=== PATIENT | female | born 1985 | race Caucasian/White ===

== ENCOUNTER 2018-05-05 12:00 | Outpatient (CLI) | payer BC, OTHER ==
[~2018-05-05] VITALS: Ht 167.6 cm; Wt 118.6 kg
[~2018-05-05 12:00] MED LIST: CEPH-368 PO; FAMO-79 PO; IBUP-1222 PO; LORA-445 PO; ONDA4TAB7 PO; PREN1TAB60 PO
[2018-05-05 12:40] VITALS: BP 122/87
[2018-05-05 13:10] LABS: MICROSCOPIC AUTO
[2018-05-05] MEDS ORDERED: NITR100C56 PO (17:10)
== END 2018-05-05 17:41 | disposition home or self-care (01) ==
LOC: LDOP 12:00
PROVIDERS: ATTEND Obstetrics & Gynecology
DX: O26.893 Other specified pregnancy related conditions, third trimester (principal); R10.9 Unspecified abdominal pain; Z3A.38 38 weeks gestation of pregnancy
CPT/HCPCS: 59025; 76815; 81001; 87086; 89060; 99211; G0463; Q0114

== ENCOUNTER 2018-05-14 20:16 | Inpatient (IN) | payer BC, OTHER ==
[~2018-05-14] VITALS: Ht 167.6 cm; Wt 118.0 kg
[~2018-05-14 20:16] MED LIST changes: +NITR100C56 PO
[2018-05-14] MEDS ORDERED: LACTATED RINGERS 1,000 ML IV SCH ×2 (20:41→21:22)
[2018-05-14] MEDS ORDERED: OXYTOCIN 30U/ 0.9% NaCL 500ML 500 ML IV PRN (20:41)
[2018-05-14] MEDS ORDERED: D5%-LACTATED RINGERS 1,000 ML IV SCH (20:41)
[2018-05-14] MEDS ORDERED: OXYTOCIN 30U/ 0.9% NaCL 500ML 500 ML IV ONE (20:41)
[2018-05-14] MEDS ORDERED: NEWBORN KIT ONE (20:44)
[2018-05-14] MEDS ORDERED: LIDOCAINE 1%, 20ML ONE (20:44)
[2018-05-14] MEDS ORDERED: MISOPROSTOL 200 MCG TABLET ONE (20:44)
[2018-05-14] MEDS ORDERED: OXYTOCIN 30U/ 0.9% NaCL 500ML 500 ML ONE (20:45)
[2018-05-14] MEDS ORDERED: SODIUM CITRATE/CITRIC ACID 30 ML UDC PO PRN (21:00)
[2018-05-14] MEDS ORDERED: PENICILLIN GK 5,000,000 UNITS in DEXTROSE 5% 100 ML IVPB ONE (21:00)
[2018-05-14] MEDS ORDERED: ONDANSETRON 2MG/ML, 2ML IVPush PRN (21:00)
[2018-05-14] MEDS ORDERED: FENTANYL PF 100 MCG/2ML IVPush PRN (21:00)
[2018-05-14] MEDS ORDERED: FENTANYL PF 100 MCG/2ML IV PRN (21:00)
[2018-05-14 21:04] LABS: BASOPHILS # (AUTO) 0.03 x10^3/uL (0-0.1); BASOPHILS % (AUTO) 0 % (0-1); EOSINOPHILS # (AUTO) 0.07 x10^3/uL (0-0.4); EOSINOPHILS % (AUTO) 1 % (1-7); LYMPHOCYTES # (AUTO) 1.82 x10^3/uL (1-3.4); LYMPHOCYTES % (AUTO) 23 % (22-44); MD NO; MEAN CORPUSCULAR HEMOGLOBIN 29.1 pg (27.0-34.8); MEAN CORPUSCULAR HGB CONC 32.7 g/dL (32.4-35.8); MEAN CORPUSCULAR VOLUME 89.1 fL (80-100); MEAN PLATELET VOLUME 8.5 fL (7.4-10.4); MONOCYTES # (AUTO) 0.45 x10^3/uL (0.2-0.8); MONOCYTES % (AUTO) 6 % (2-9); NEUTROPHILS # (AUTO) 5.71 x10^3/uL (1.8-6.8); NEUTROPHILS % (AUTO) 71 % (42-75); PLATELET COUNT 217 x10^3/uL (130-400); RED BLOOD COUNT 4.32 x10^6/uL (3.82-5.3); RED CELL DISTRIBUTION WIDTH 14.4 % (9.6-15.2)
[2018-05-14 21:08] VITALS: BP 126/83
[2018-05-14] MEDS ORDERED: FENTANYL/BUPIV./NS/PF 250 ML EPIDCONT SCH (21:22)
[2018-05-14] MEDS ORDERED: EPHEDRINE 50 MG/ML, 1ML IVPush PRN (21:30)
[2018-05-14] MEDS ORDERED: FENTANYL PF 500 MCG, BUPIVACAINE/PF 0.5%, 30ML 62.5 ML in SODIUM CHLORIDE 0.9% 177.5 ML EPIDCONT SCH (21:30)
[2018-05-14] MEDS ORDERED: LACTATED RINGERS 1,000 ML IVBOLUS PRN (21:30)
[2018-05-14] MEDS ORDERED: BUPIVACAINE 0.25% ONE (21:57)
[2018-05-15] MEDS ORDERED: PENICILLIN GK 2,500,000 UNITS in DEXTROSE 5% 100 ML IVPB SCH (01:00)
[2018-05-15] MEDS: OXYTOCIN 30U/ 0.9% NaCL 500ML 500 ML IV SCH ×2 (04:41→14:41)
[2018-05-15] MEDS ORDERED: MISOPROSTOL 200 MCG TABLET PR PRN (05:00)
[2018-05-15] MEDS ORDERED: CARBOPROST TROMETHAMINE 250 MCG/ML, 1ML IM PRN (05:00)
[2018-05-15] MEDS ORDERED: OXYcodone IR 5MG TABLET PO PRN ×2 (05:00)
[2018-05-15] MEDS ORDERED: ONDANSETRON 2MG/ML, 2ML IV PRN (05:00)
[2018-05-15] MEDS ORDERED: RHOGAM FROM BLOOD BANK 1 NOTE EA IM/IV ONE (05:00)
[2018-05-15] MEDS ORDERED: METHYLERGONOVINE 0.2 MG/ML IM PRN (05:00)
[2018-05-15 07:05] VITALS: BP 106/60
[2018-05-15] MEDS ORDERED: LACTATED RINGERS 1,000 ML IV SCH (07:30)
[2018-05-15 07:40] VITALS: BP 105/60
[2018-05-15] MEDS: IBUPROFEN 800 MG TABLET PO PRN (09:35)
[2018-05-15] MEDS: PRENATAL VIT/IRON/FA 1 EACH TABLET PO SCH (09:35)
[2018-05-15 14:13] VITALS: BP 113/73
[2018-05-15 20:07] VITALS: BP 110/77
[2018-05-15 23:59] VITALS: BP 104/70
[2018-05-16] MEDS: IBUPROFEN 800 MG TABLET PO PRN (00:03)
[2018-05-16 04:01] VITALS: BP_SYST 88; BP_DIAS 59; BP_DIAS 61
[2018-05-16] MEDS ORDERED: MEASLES,MUMPS&RUBELLA VACC/PF 0.5 ML SQ-VACC ONE ×2 (04:11→04:30)
[2018-05-16 09:30] VITALS: BP 108/75
[2018-05-16] MEDS: PRENATAL VIT/IRON/FA 1 EACH TABLET PO SCH (10:36)
[2018-05-16 10:57] LABS: BASOPHILS # (AUTO) 0.07 x10^3/uL (0-0.1); BASOPHILS % (AUTO) 1 % (0-1); EOSINOPHILS # (AUTO) 0.04 x10^3/uL (0-0.4); EOSINOPHILS % (AUTO) 1 % (1-7); LYMPHOCYTES # (AUTO) 1.97 x10^3/uL (1-3.4); LYMPHOCYTES % (AUTO) 24 % (22-44); MD NO; MEAN CORPUSCULAR HEMOGLOBIN 28.7 pg (27.0-34.8); MEAN CORPUSCULAR HGB CONC 32.3 g/dL (32.4-35.8); MEAN CORPUSCULAR VOLUME 88.9 fL (80-100); MEAN PLATELET VOLUME 8.3 fL (7.4-10.4); MONOCYTES # (AUTO) 0.42 x10^3/uL (0.2-0.8); MONOCYTES % (AUTO) 5 % (2-9); NEUTROPHILS # (AUTO) 5.77 x10^3/uL (1.8-6.8); NEUTROPHILS % (AUTO) 70 % (42-75); PLATELET COUNT 228 x10^3/uL (130-400); RED BLOOD COUNT 4.31 x10^6/uL (3.82-5.3); RED CELL DISTRIBUTION WIDTH 14.7 % (9.6-15.2)
== END 2018-05-16 18:15 | disposition home or self-care (01) | DRG 807 ==
LOC: LDOP 20:16 → LDIP 20:49 → 2NW 05-15 07:32
PROVIDERS: ADMIT Obstetrics & Gynecology; ATTEND Obstetrics & Gynecology
PROC: 10E0XZZ Delivery of Products of Conception, External Approach (ICD-10-PCS; principal; 2018-05-15)
PROC: 0UQMXZZ Repair Vulva, External Approach (ICD-10-PCS; 2018-05-15)
PROC: 3E0R3BZ Introduction of Anesthetic Agent into Spinal Canal, Percutaneous Approach (ICD-10-PCS; 2018-05-15)
PROC: 00HU33Z Insertion of Infusion Device into Spinal Canal, Percutaneous Approach (ICD-10-PCS; 2018-05-15)
DX: O69.81X0 Labor and delivery complicated by cord around neck, without compression, not applicable or unspecified (principal); Z37.0 Single live birth; O77.0 Labor and delivery complicated by meconium in amniotic fluid; Z3A.40 40 weeks gestation of pregnancy; O70.1 Second degree perineal laceration during delivery
CPT/HCPCS: 36415; 85025; 86850; 86900; G0378; J2540; J3010; J3490; J2590; J7050; J7120

== ENCOUNTER 2019-01-27 09:08 | Emergency (ER) | payer BC, OTHER ==
[~2019-01-27] VITALS: Ht 167.6 cm; Wt 100.0 kg
--- NOTE | 2019-01-27 09:15 | NUR ---
ticket sales supervisor note: Pt ambulatory to room from triage with steady gait.
--- NOTE | 2019-01-27 09:59 | NUR ---
PT HAS CO OF WEAKNESS STARTING YESTERDAY. PT STATES "SHE PASSED OUT YESTERDAY AND ALMOST TODAY IN THE SHOWER". PT RESTING ON GURNEY, NOT IN DISTRESS. A&OX4. AMBULATED TO BATHROOM FOR UA.
--- NOTE | 2019-01-27 10:02 | NUR ---
REPORT RECEIVED FROM TYRELL PICHARDO. ASSUMED CARE OF PT.
[2019-01-27 10:09] LABS: CULTURE INDICATED? YES; MICROSCOPIC INDICATED
[2019-01-27 10:16] LABS: MEAN CORPUSCULAR HEMOGLOBIN 29.7 pg (27.0-34.8); MEAN CORPUSCULAR HGB CONC 33.5 g/dL (32.4-35.8); MEAN CORPUSCULAR VOLUME 88.8 fL (80-100); PLATELET COUNT 255 x10^3/uL (130-400); RED BLOOD COUNT 4.66 x10^6/uL (3.82-5.3); RED CELL DISTRIBUTION WIDTH 12.6 % (9.6-15.2)
[2019-01-27 10:19] LABS: RAPID INFLUENZA A Negative (Negative); RAPID INFLUENZA B Negative (Negative)
--- NOTE | 2019-01-27 10:23 | NUR ---
ASSUMED CARE OF PT. PT C/O ANGEL 11/15. DENIES DIZZINESS. VSS. WILL NOTIFY . CALL JAVIER IN [place].
[2019-01-27 10:26] LABS: ALANINE AMINOTRANSFERASE 99 U/L (12-78); ALBUMIN 3.6 g/dL (3.4-5.0); ANION GAP 6 mmol/L (5-15); CALCIUM 8.7 mg/dL (8.5-10.1); CHLORIDE 107 mmol/L (98-107); CREATININE 0.74 mg/dL (0.55-1.02)
[2019-01-27 10:30] LABS: ALKALINE PHOSPHATASE 139 U/L (45-117); BILIRUBIN,TOTAL 0.4 mg/dL (0.2-1.0); TOTAL PROTEIN 8.1 g/dL (6.4-8.2)
[2019-01-27] MEDS ORDERED: ACETAMINOPHEN 325 MG TABLET PO ONE (10:30)
[2019-01-27] MEDS ORDERED: ACETAMINOPHEN 325 MG TABLET ONE (10:40)
[2019-01-27 10:41] LABS: MD YES
[2019-01-27] MEDS ORDERED: ONDANSETRON ODT 4 MG ONE (10:42)
--- NOTE | 2019-01-27 10:42 | NUR ---
MD AT BEDSIDE. MEDS PER MAY. PLAN FOR PO CHALLENGE AFTER ZOFRAN.
[2019-01-27 10:43] LABS: BAND#(MANUAL) 1.04 x10^3/uL; BANDS%(MANUAL) 6 % (0-7); LYMPH#(MANUAL) 1.04 x10^3/uL (1-3.4); LYMPHS% (MANUAL) 6 % (22-44); MONOS#(MANUAL) 0.52 x10^3/uL (0.3-2.7); MONOS% (MANUAL) 3 % (2-9); SEG#(MANUAL) 14.79 x10^3/uL (1.8-6.8); SEGS% (MANUAL) 85 % (42-75)
[2019-01-27] MEDS ORDERED: IBUPROFEN 600 MG TABLET ONE (10:43)
[2019-01-27 10:44] LABS: <PLATELET ESTIMATE> ADEQUATE; <PLT MORPHOLOGY> NORMAL PLT MORPH; <RBC MORPHOLOGY> NORMAL; PMNS WITH VACUOLES 1+
[2019-01-27] MEDS ORDERED: ONDANSETRON ODT 4 MG PO ONE (11:00)
[2019-01-27] MEDS ORDERED: IBUPROFEN 600 MG TABLET PO ONE (11:00)
--- NOTE | 2019-01-27 11:18 | NUR ---
pt reports feeling better, denies nausea, passed PO challenge.
[2019-01-27 11:28] VITALS: BP 106/64
== END 2019-01-27 11:57 | disposition home or self-care (01) ==
LOC: ED 10:57
DX: R55 Syncope and collapse (principal); J02.9 Acute pharyngitis, unspecified; D72.829 Elevated white blood cell count, unspecified; R79.9 Abnormal finding of blood chemistry, unspecified
CPT/HCPCS: 36415; 71046; 80053; 81001; 84703; 85025; 87086; 87400; 93005; 99284; Q0162